=== PATIENT | female | born 1990 | race African-American/Black ===

== ENCOUNTER 2021-03-19 03:59 | Emergency (ER) | payer SELFPAY ==
[~2021-03-19] VITALS: Ht 182.9 cm; Wt 88.1 kg
[2021-03-19 04:20] VITALS: BP 137/83
[2021-03-19] MEDS ORDERED: ACETAMINOPHEN 325MG TABLET PO ONE (04:45)
[2021-03-19] MEDS ORDERED: KETOROLAC 30MG/ML VIAL IM ONE (04:45)
[2021-03-19] MEDS ORDERED: IBUPROFEN 600MG TABLET PO ONE (05:00)
== END 2021-03-19 05:21 | disposition left against medical advice (07) ==
LOC: ER 03:59
DX: M54.50 Low back pain, unspecified (principal)
CPT/HCPCS: 99281